=== PATIENT | female | born 1950 | race Caucasian/White ===

== ENCOUNTER 2018-03-17 05:24 | Inpatient (IN) | payer MEDICARE, MEDICAID ==
[~2018-03-17] VITALS: Ht 163.8 cm; Wt 95.5 kg
[~2018-03-17 05:24] MED LIST: ADV50100 INH; ALBU18HF2 INH; CLON0.2T PO; CLOP75TA15 PO; DILT360C18 PO; DOXY-257 PO; DULO-31 PO; FURO40TA4 PO; HYDR-4383 PO; HYDR50TA3 PO; IMDUR PO; LABE100T5 PO; LACT1CAP65 PO; LANTUS SUBCUT; LISI-600 PO; LORA1TAB PO; METO10TA3 PO; MONT10TA21 PO; NITR0.4T SL; POTA10TA15 PO; PRED10TA PO; ROFL500T7 PO; ROPI1TAB2 PO; SIMV10TA6 PO; TIOT4MIS5 INH; VITAMIN D3 PO; [UNRECOGNIZED DRUG - CODE] PO
--- NOTE | 2018-03-17 06:00 | NUR ---
ATTEMPTED TO DRAW LABS, UNSUCCESSFUL X 2.
[2018-03-17 06:33] LABS: ALANINE AMINOTRANSFERASE 18 U/L (12-78); ALBUMIN 3.1 G/DL (3.4-5.0); ALBUMIN/GLOBULIN RATIO 0.6 (1.1-1.5); ALKALINE PHOSPHATASE 117 IU/L (46-116); ANION GAP 11 (8-16); BASOPHILS # (AUTO) 0.1 X10'3 (0-0.2); BASOPHILS % (AUTO) 0.8 % (0-1); BILIRUBIN,TOTAL 0.4 MG/DL (0.1-1.0); BLOOD UREA NITROGEN 20 MG/DL (7-18); BUN/CREATININE RATIO 16.1 (6.6-38.0); CALCIUM 9.7 MG/DL (8.5-10.1); CHLORIDE 102 MMOL/L (99-107); CREATININE 1.24 MG/DL (0.40-0.90); EOSINOPHILS % (AUTO) 0.3 % (0-6); GLUCOSE 117 MG/DL (70-104); HEMATOCRIT 40.3 % (35.0-45.0); HEMOGLOBIN 12.6 g/dl (12.0-16.0); LYMPHOCYTES # (AUTO) 1.5 X10'3 (1.1-4.8); LYMPHOCYTES % (AUTO) 15.5 % (21-51); MEAN CORPUSCULAR HEMOGLOBIN 24.4 PG (27.0-31.0); MEAN CORPUSCULAR HGB CONC 31.3 % (33.0-36.5); MEAN CORPUSCULAR VOLUME 78.1 FL (78-98); MEAN PLATELET VOLUME 7.9 FL (7.4-10.4); MONOCYTES # (AUTO) 0.6 X10'3 (0-0.9); MONOCYTES % (AUTO) 5.7 % (2-12); NEUTROPHILS # (AUTO) 7.5 X10'3 (1.8-7.7); NEUTROPHILS % (AUTO) 77.7 % (42-75); PLATELET COUNT 331 X10'3 (140-440); RED BLOOD COUNT 5.16 X10'6 (4.20-5.60); RED CELL DISTRIBUTION WIDTH 17.1 % (11.5-14.5); SODIUM 137 MMOL/L (135-145); WHITE BLOOD COUNT 9.7 X10'3 (4.5-11.0); eGFR 43 ML/MIN
[2018-03-17 06:38] LABS: ASPARTATE AMINO TRANSFERASE 28 U/L (10-37); POTASSIUM 4.3 MMOL/L (3.5-5.1)
[2018-03-17] MEDS ORDERED: azithromycin/NS 500mg/250ml 250 ML IV STA (06:46)
[2018-03-17 06:48] LABS: INR 1.1 INR; PARTIAL THROMBOPLASTIN TIME 23 SECONDS (22-32); PROTHROMBIN TIME 10.9 SECONDS (9.0-12.0)
[2018-03-17] MEDS ORDERED: albuterol 2.5 MG/3 ML nebule NEB ONE (06:50)
[2018-03-17] MEDS ORDERED: methylPREDNISolone sod succ 125mg/2ml vial IV ONE (06:50)
[2018-03-17] MEDS ORDERED: ipratropium/albuterol 3ml nebule NEB ONE (06:50)
[2018-03-17 07:21] LABS: ABG BASE EXCESS 1.5 mmol/L (-2.0-3.0); ABG HCO3 24.3 mmol/L (22.0-26.0); ABG PCO2 (T) 32.6 mmHg (32.0-45.0); ALLEN'S TEST Positive; FCOHb 1.7 % (0.5-1.5); FLOW 2 L/min; FMetHb 0.1 % (0.3-1.12); FO2Hb 94.3 % (94-100); RESPIRATORY RATE (OBSERVED) 22 b/min; TOTAL HEMOGLOBIN 12.9 G/dl (12.0-16.0)
--- NOTE | 2018-03-17 07:49 | NUR ---
Called to room. Pt complaining of left arm pain at IV site. Small amount of edema and redness noted. IV discontinued.
[2018-03-17] MEDS ORDERED: furosemide 10 MG/1 ML 10ml inj IV ONE (08:05)
[2018-03-17] MEDS ORDERED: ondansetron/PF 4mg/2ml inj IV ONE (08:05)
[2018-03-17 08:35] LABS: MAGNESIUM 1.8 MG/DL (1.5-2.4)
[2018-03-17] MEDS: normal saline 1000ml 1,000 ML IV SCH (09:32)
[2018-03-17] MEDS ORDERED: magnesium 4gm in 100ml NS 100 ML IV PRN (09:35)
[2018-03-17] MEDS ORDERED: magnesium Cl slow-release 64mg tablet PO PRN (09:35)
[2018-03-17] MEDS ORDERED: dextrose 50%-water 50ml dispensing syringe IV PRN ×3 (09:35→10:10)
[2018-03-17] MEDS ORDERED: magnesium 2GM in 50ml NS 50 ML IV PRN (09:35)
[2018-03-17] MEDS ORDERED: acetaminophen 325mg tablet PO PRN ×2 (09:35)
[2018-03-17] MEDS ORDERED: potassium Cl 20 mEq SR tablet PO PRN ×2 (09:35)
[2018-03-17] MEDS ORDERED: ondansetron/PF 4mg/2ml inj IV PRN (09:35)
[2018-03-17] MEDS ORDERED: potassium Cl 40MEQ/NS 500ml 500 ML IV PRN ×2 (09:35)
[2018-03-17] MEDS: morphine 4 MG/ML inj SYRINge IV PRN ×2 (09:49→14:41)
[2018-03-17] MEDS ORDERED: MESSAGE TO PHARMACY PO ONE (10:10)
[2018-03-17] MEDS ORDERED: glucagon, human recombinant 1mg kit SUBCUT PRN (10:10)
[2018-03-17] MEDS ORDERED: insulin Lispro (HumaLOG) vial - multi-dose SQ SCH (10:10)
[2018-03-17] MEDS ORDERED: dextrose ORAL solution 15 GM/59 ML bottle PO PRN ×2 (10:10)
[2018-03-17] MEDS ORDERED: ACET-2765 PO (10:45)
[2018-03-17] MEDS ORDERED: ONDA4TAB6 PO (10:45)
[2018-03-17] MEDS ORDERED: ATOR40TA PO (10:45)
[2018-03-17] MEDS ORDERED: ASPI-1053 PO (10:45)
[2018-03-17] MEDS ORDERED: PANT-47 PO (10:45)
[2018-03-17] MEDS ORDERED: ROFL500T7 PO (10:45)
[2018-03-17] MEDS ORDERED: TIOT4MIS5 IH (10:45)
[2018-03-17] MEDS ORDERED: ALPR-624 PO (10:45)
[2018-03-17] MEDS ORDERED: AMIO200T54 PO (10:45)
[2018-03-17] MEDS ORDERED: INSU100V12 SQ (10:45)
[2018-03-17] MEDS ORDERED: ATR0.5NEB IH (10:45)
[2018-03-17] MEDS ORDERED: DOCU250C4 PO (10:45)
[2018-03-17] MEDS ORDERED: BISO5TAB PO (10:45)
[2018-03-17] MEDS ORDERED: LISI2.5T2 PO (10:45)
[2018-03-17] MEDS ORDERED: ISOS60TA4 PO (10:45)
[2018-03-17] MEDS ORDERED: ROBDML PO (10:45)
[2018-03-17] MEDS ORDERED: LACT1CAP65 PO (10:45)
[2018-03-17 12:08] LABS: HEMOGLOBIN A1C 6.8 % (4.5-6.2)
[2018-03-17] MEDS: albuterol 2.5 MG/3 ML nebule NEB SCH ×2 (12:31→20:00)
[2018-03-17] MEDS ORDERED: LORazepam 1 MG tablet PO ONE (13:25)
[2018-03-17] MEDS ORDERED: LORazepam 0.5 MG tablet PO ONE (14:00)
--- NOTE | 2018-03-17 15:15 | NUR ---
Patient arrived to the floor, VSS, patient alert, oriented, pleasant, skin assessment completed with ED RN, Ratna. No distress noted, pt on 3L O2, O2 sats 95%.
[2018-03-17 15:37] VITALS: BP 97/52
--- NOTE | 2018-03-17 16:36 | NUR ---
Paged Dr. Raymond regarding this pt's prolonged QTC of 0.517. Awaiting further orders.
[2018-03-17 18:00] VITALS: BP 115/49
--- NOTE | 2018-03-17 18:35 | NUR ---
Patient in room U 3024. I have received report from Silvina Mejia and had the opportunity to ask questions and assume patient care. Addendum: 03/17/18 at 1906 by Kalie Mata RN Amended: Links added.
--- NOTE | 2018-03-17 18:53 | NUR ---
Problems reprioritized. Patient report given, questions answered & plan of care reviewed with MAKI Jade.
[2018-03-17] MEDS: HYDROcodone/acetaminophen 5mg/325mg tablet PO PRN (20:25)
[2018-03-17] MEDS: docusate sod 100mg capsule PO SCH (20:25)
[2018-03-17] MEDS: heparin, porcine 5000 units/ml vial SQ SCH (20:26)
--- NOTE | 2018-03-17 20:30 | NUR ---
pt awoke took her hs meds and talked with her daughter briefly on the phone. daughter also talked with Rn confirming Mom sleepy and medicated for pain.
[2018-03-17] MEDS: insulin glargine (Lantus) pen - multi-dose SQ SCH (20:36)
[2018-03-17] MEDS ORDERED: temazepam 15mg capsule PO PRN (21:00)
[2018-03-17 22:00] VITALS: BP 109/74
--- NOTE | 2018-03-17 22:30 | NUR ---
pt resting no s&s of distress at this time. appears comfortable.
--- NOTE | 2018-03-18 00:19 | NUR ---
resting no s&s of distress lights turned off in the room
--- NOTE | 2018-03-18 01:05 | NUR ---
daughter called to check on pt she is [place] and concerned. stated pt has been depressed since just before she moved and her anxiety and lack of sleep and depression has gotten worse. she stated she's glad her Mom is resting tonight.
--- NOTE | 2018-03-18 01:38 | NUR ---
pt awoke needed to use the rest room. voided 450cc urine and assisted in ambulating to and from the bathroom. pt c/o knee pain especially in the right knee. medicated with norco for this.
[2018-03-18] MEDS: HYDROcodone/acetaminophen 5mg/325mg tablet PO PRN ×4 (01:41→20:28)
[2018-03-18 02:00] VITALS: BP 129/77
[2018-03-18] MEDS: albuterol 2.5 MG/3 ML nebule NEB SCH ×4 (02:00→20:20)
[2018-03-18] MEDS: morphine 4 MG/ML inj SYRINge IV PRN ×3 (03:43→16:16)
--- NOTE | 2018-03-18 03:45 | NUR ---
pt stated she ate 3 bags one day and the next day 5 bags of pork rinds as a snack. teaching done about the salt in that, shrimp and soda's not being good for her for fluid retention. stop smoking explained why she needed to.
[2018-03-18] MEDS: normal saline 1000ml 1,000 ML IV SCH ×2 (03:51→20:26)
--- NOTE | 2018-03-18 05:45 | NUR ---
awoke a/o no complaints or s&s of distress at this time.
[2018-03-18 06:00] VITALS: BP 143/60
--- NOTE | 2018-03-18 06:29 | NUR ---
Problems reprioritized. Patient report given, questions answered & plan of care reviewed with Ale Mejia. Addendum: 03/18/18 at 0632 by Kalie Mata RN Amended: Links added.
[2018-03-18 06:51] LABS: BASOPHILS % (AUTO) 0.2 % (0-1); EOSINOPHILS % (AUTO) 0.1 % (0-6); HEMATOCRIT 32.7 % (35.0-45.0); HEMOGLOBIN 10.4 g/dl (12.0-16.0); LYMPHOCYTES # (AUTO) 2.4 X10'3 (1.1-4.8); MEAN CORPUSCULAR HEMOGLOBIN 24.8 PG (27.0-31.0); MEAN CORPUSCULAR HGB CONC 31.7 % (33.0-36.5); MEAN CORPUSCULAR VOLUME 78.2 FL (78-98); MEAN PLATELET VOLUME 8.1 FL (7.4-10.4); MONOCYTES # (AUTO) 1.1 X10'3 (0-0.9); MONOCYTES % (AUTO) 7.5 % (2-12); NEUTROPHILS # (AUTO) 10.8 X10'3 (1.8-7.7); NEUTROPHILS % (AUTO) 75.2 % (42-75); PLATELET COUNT 278 X10'3 (140-440); RED BLOOD COUNT 4.18 X10'6 (4.20-5.60); RED CELL DISTRIBUTION WIDTH 17.7 % (11.5-14.5); WHITE BLOOD COUNT 14.3 X10'3 (4.5-11.0)
[2018-03-18 07:00] LABS: ALANINE AMINOTRANSFERASE 17 U/L (12-78); ALBUMIN 2.8 G/DL (3.4-5.0); ALBUMIN/GLOBULIN RATIO 0.7 (1.1-1.5); ALKALINE PHOSPHATASE 94 IU/L (46-116); ANION GAP 11 (8-16); ASPARTATE AMINO TRANSFERASE 16 U/L (10-37); BILIRUBIN,TOTAL 0.4 MG/DL (0.1-1.0); BLOOD UREA NITROGEN 34 MG/DL (7-18); BUN/CREATININE RATIO 24.6 (6.6-38.0); CALCIUM 8.9 MG/DL (8.5-10.1); CHLORIDE 104 MMOL/L (99-107); CREATININE 1.38 MG/DL (0.40-0.90); GLUCOSE 88 MG/DL (70-104); POTASSIUM 3.8 MMOL/L (3.5-5.1); SODIUM 141 MMOL/L (135-145); TOTAL CARBON DIOXIDE 26.2 MMOL/L (24-32); TOTAL PROTEIN 6.6 G/DL (6.4-8.2); eGFR 38 ML/MIN
[2018-03-18] MEDS: K and/or MAG REPLACEMENT MC SCH (07:40)
[2018-03-18] MEDS: CefTRIAXone 2gm/D5W 50ml 50 ML IV SCH (07:50)
[2018-03-18] MEDS: pantoprazole 40mg Tablet.DR PO SCH (07:50)
[2018-03-18] MEDS: docusate sod 100mg capsule PO SCH ×2 (07:50→20:28)
[2018-03-18] MEDS: atenolol 50mg tablet PO SCH (07:51)
[2018-03-18] MEDS: clopidogrel 75mg tablet PO SCH (07:51)
[2018-03-18] MEDS: aspirin 81mg tab.chew PO SCH (07:51)
[2018-03-18] MEDS: lisinopril 5mg tablet PO SCH (07:51)
[2018-03-18] MEDS: duloxetine 30mg CAPSULE.DR PO SCH (07:51)
[2018-03-18] MEDS: atorvastatin 20mg tablet PO SCH (07:51)
[2018-03-18] MEDS: nicotine 14mg patch - 24hr TD SCH (07:52)
[2018-03-18] MEDS: heparin, porcine 5000 units/ml vial SQ SCH ×2 (07:52→20:28)
[2018-03-18] MEDS ORDERED: lisinopril 20mg tablet PO SCH (08:00)
[2018-03-18] MEDS ORDERED: HYDROchlorothiazide 25mg tablet PO SCH (08:00)
[2018-03-18] MEDS ORDERED: clopidogrel 75mg tablet PO SCH (08:00)
[2018-03-18] MEDS ORDERED: methylPREDNISolone sod succ 125mg/2ml vial IV SCH (08:00)
[2018-03-18 11:00] VITALS: BP 121/51
[2018-03-18] MEDS: LORazepam 2 mg/ml vial IV PRN ×2 (11:04→17:33)
--- NOTE | 2018-03-18 11:10 | NUR ---
Patient anxious, fidgety, asking for something to help calm her down. Primary RN, Ale ok with patient getting anxiety meds. Ativan given as ordered.
[2018-03-18 18:00] VITALS: BP 133/52
--- NOTE | 2018-03-18 18:30 | NUR ---
Patient in room U 3024. I have received report from DAVID GAMBINO and had the opportunity to ask questions and assume patient care. Addendum: 03/18/18 at 1910 by Kalie Mata RN Amended: Links added.
--- NOTE | 2018-03-18 18:32 | NUR ---
Problems reprioritized. Patient report given, questions answered & plan of care reviewed with ANGELA GAMBINO.
[2018-03-18 20:15] LABS: ABG BASE EXCESS 0.1 mmol/L (-2.0-3.0); ABG HCO3 25.4 mmol/L (22.0-26.0); ABG PH (T) 7.387 (7.350-7.450); ABG PO2 (T) 86.4 mmHg (83-108); ALLEN'S TEST Positive; FCOHb 0.5 % (0.5-1.5); FLOW 3 L/min; FMetHb 0.1 % (0.3-1.12); FO2Hb 95.4 % (94-100); PATIENT TEMPERATURE 36.6; TOTAL HEMOGLOBIN 10.7 G/dl (12.0-16.0)
--- NOTE | 2018-03-18 20:30 | NUR ---
pt took hs medications and medicated for pain with norco with gd results.
[2018-03-18] MEDS: insulin glargine (Lantus) pen - multi-dose SQ SCH (21:00)
[2018-03-18 22:00] VITALS: BP 134/65
--- NOTE | 2018-03-18 22:58 | NUR ---
pt resting eyes closed without s&s of distress at this time.
--- NOTE | 2018-03-19 00:49 | NUR ---
resting eyes closed without changes.
[2018-03-19] MEDS: morphine 4 MG/ML inj SYRINge IV PRN (01:58)
[2018-03-19 02:00] VITALS: BP 139/64
--- NOTE | 2018-03-19 02:00 | NUR ---
awoke c/p pain with knee medicated with morphine for this.
[2018-03-19] MEDS: albuterol 2.5 MG/3 ML nebule NEB SCH ×2 (02:53→10:29)
--- NOTE | 2018-03-19 03:00 | NUR ---
up with assistance to void at this time. tolerated well.
--- NOTE | 2018-03-19 04:00 | NUR ---
resting eyes closed without changes.
--- NOTE | 2018-03-19 04:30 | NUR ---
daughter called to check on her. no changes.
[2018-03-19] MEDS: normal saline 1000ml 1,000 ML IV SCH (05:05)
[2018-03-19] MEDS: HYDROcodone/acetaminophen 5mg/325mg tablet PO PRN ×2 (05:10→09:13)
--- NOTE | 2018-03-19 05:12 | NUR ---
pt awoke medicated for pain with po norco.
--- NOTE | 2018-03-19 06:50 | NUR ---
Problems reprioritized. Patient report given, questions answered & plan of care reviewed with Yamile Mejia. Addendum: 03/19/18 at 0650 by Kalie Mata RN Amended: Links added.
--- NOTE | 2018-03-19 06:54 | NUR ---
Patient in room PC[facility] 3024. I have received report from Kalie GAMBINO and had the opportunity to ask questions and assume patient care.
[2018-03-19 07:00] VITALS: BP 140/55
[2018-03-19 08:00] VITALS: BP_SYST 140
[2018-03-19] MEDS ORDERED: methylPREDNISolone sod succ/PF 40mg inj. IV SCH (08:00)
[2018-03-19] MEDS: atenolol 50mg tablet PO SCH (08:00)
[2018-03-19] MEDS: K and/or MAG REPLACEMENT MC SCH (08:00)
[2018-03-19] MEDS: pantoprazole 40mg Tablet.DR PO SCH (08:00)
[2018-03-19 08:20] LABS: BASOPHILS % (AUTO) 0.2 % (0-1); EOSINOPHILS # (AUTO) 0.1 X10'3 (0-0.9); EOSINOPHILS % (AUTO) 0.5 % (0-6); HEMATOCRIT 34.5 % (35.0-45.0); HEMOGLOBIN 11.1 g/dl (12.0-16.0); MEAN CORPUSCULAR HEMOGLOBIN 25.3 PG (27.0-31.0); MEAN CORPUSCULAR HGB CONC 32.3 % (33.0-36.5); MEAN CORPUSCULAR VOLUME 78.4 FL (78-98); MEAN PLATELET VOLUME 8.5 FL (7.4-10.4); MONOCYTES # (AUTO) 0.8 X10'3 (0-0.9); MONOCYTES % (AUTO) 7.5 % (2-12); NEUTROPHILS # (AUTO) 7.2 X10'3 (1.8-7.7); NEUTROPHILS % (AUTO) 64.8 % (42-75); PLATELET COUNT 265 X10'3 (140-440); RED CELL DISTRIBUTION WIDTH 17.7 % (11.5-14.5); WHITE BLOOD COUNT 11.1 X10'3 (4.5-11.0)
[2018-03-19 08:41] LABS: ALANINE AMINOTRANSFERASE 16 U/L (12-78); ALBUMIN 2.8 G/DL (3.4-5.0); ALBUMIN/GLOBULIN RATIO 0.7 (1.1-1.5); ALKALINE PHOSPHATASE 97 IU/L (46-116); ANION GAP 9 (8-16); ASPARTATE AMINO TRANSFERASE 17 U/L (10-37); BILIRUBIN,TOTAL 0.4 MG/DL (0.1-1.0); BLOOD UREA NITROGEN 32 MG/DL (7-18); BUN/CREATININE RATIO 26.2 (6.6-38.0); CALCIUM 8.8 MG/DL (8.5-10.1); CHLORIDE 105 MMOL/L (99-107); CREATININE 1.22 MG/DL (0.40-0.90); GLUCOSE 71 MG/DL (70-104); MAGNESIUM 1.9 MG/DL (1.5-2.4); POTASSIUM 3.5 MMOL/L (3.5-5.1); SODIUM 141 MMOL/L (135-145); TOTAL CARBON DIOXIDE 26.6 MMOL/L (24-32); TOTAL PROTEIN 6.6 G/DL (6.4-8.2); eGFR 44 ML/MIN
[2018-03-19] MEDS: CefTRIAXone 2gm/D5W 50ml 50 ML IV SCH (09:10)
[2018-03-19] MEDS: nicotine 14mg patch - 24hr TD SCH (09:11)
[2018-03-19] MEDS: docusate sod 100mg capsule PO SCH (09:11)
[2018-03-19] MEDS: atorvastatin 20mg tablet PO SCH (09:11)
[2018-03-19] MEDS: aspirin 81mg tab.chew PO SCH (09:12)
[2018-03-19] MEDS: lisinopril 5mg tablet PO SCH (09:12)
[2018-03-19] MEDS: clopidogrel 75mg tablet PO SCH (09:12)
[2018-03-19] MEDS: duloxetine 30mg CAPSULE.DR PO SCH (09:12)
[2018-03-19] MEDS ORDERED: ADV50250 IH (09:15)
[2018-03-19] MEDS ORDERED: NICO-631 TD (09:15)
[2018-03-19] MEDS ORDERED: ALBU2.5V7 NEB (09:15)
[2018-03-19] MEDS ORDERED: PRED10TA23 PO (09:19)
[2018-03-19] MEDS ORDERED: LEVO500T2 PO (09:19)
[2018-03-19 09:20] LABS: ANISOCYTOSIS 2+; HYPOCHROMASIA 1+; MICROCYTOSIS 1+; PLATELET ESTIMATE NORMAL; POLYCHROMASIA 1+; TARGET CELLS FEW
[2018-03-19] MEDS: LORazepam 2 mg/ml vial IV PRN (11:02)
[2018-03-19] MEDS: heparin, porcine 5000 units/ml vial SQ SCH (11:03)
--- NOTE | 2018-03-19 11:54 | NUR ---
Pt escorted to elevator by in wheelchair for safe discharge. All discharge paperwork completed, reviewed, and signed. IV dc'd, tele box returned, and medical id bracelets removed. Pt happy with care and discharge.
== END 2018-03-19 13:48 | disposition home or self-care (01) | DRG 189 ==
LOC: ER 05:25 → ED HOLD 09:32 → PCU 3S 15:33
PROVIDERS: ADMIT Internal Medicine; ATTEND Internal Medicine
DX: J96.01 Acute respiratory failure with hypoxia (principal); J44.1 Chronic obstructive pulmonary disease with (acute) exacerbation; I13.0 Hypertensive heart and chronic kidney disease with heart failure and stage 1 through stage 4 chronic kidney disease, or unspecified chronic kidney disease; E11.22 Type 2 diabetes mellitus with diabetic chronic kidney disease; E78.00 Pure hypercholesterolemia, unspecified; E78.5 Hyperlipidemia, unspecified; F41.9 Anxiety disorder, unspecified; G89.4 Chronic pain syndrome; I25.10 Atherosclerotic heart disease of native coronary artery without angina pectoris; N18.3 Chronic kidney disease, stage 3 (moderate); I50.9 Heart failure, unspecified; F17.210 Nicotine dependence, cigarettes, uncomplicated; I25.2 Old myocardial infarction; Z76.5 Malingerer [conscious simulation]; Z90.49 Acquired absence of other specified parts of digestive tract; Z95.1 Presence of aortocoronary bypass graft; Z90.710 Acquired absence of both cervix and uterus; Z99.81 Dependence on supplemental oxygen; Z88.1 Allergy status to other antibiotic agents; Z88.8 Allergy status to other drugs, medicaments and biological substances; Z91.041 Radiographic dye allergy status; Z79.82 Long term (current) use of aspirin; Z79.51 Long term (current) use of inhaled steroids; Z79.4 Long term (current) use of insulin; Z86.73 Personal history of transient ischemic attack (TIA), and cerebral infarction without residual deficits; Z80.9 Family history of malignant neoplasm, unspecified; Z82.49 Family history of ischemic heart disease and other diseases of the circulatory system
CPT/HCPCS: 36415; 36600; 71045; 80053; 82803; 82948; 83036; 83605; 83735; 83880; 84484; 85018; 85025; 85610; 85730; 87040; 93005; 94640; 94760; 96365; 96375; 97116; 97161; 97530; 99285; G0378; J0456; J0696; J1644; J1815; J1940; J2060; J2270; J2405; J2920; J2930; J7030

== ENCOUNTER 2018-05-02 18:46 | Inpatient (IN) | payer MEDICARE, MEDICAID | END 2018-05-08 12:30 | LOC: ER 18:46 → PCU 3S 05-03 00:47 → ED HOLD 22:43 → ORTHO 4S 05-03 16:15 | DX: M80.88XA Other osteoporosis with current pathological fracture, vertebra(e), initial encounter for fracture (principal); E43 Unspecified severe protein-calorie malnutrition; S32.029A Unspecified fracture of second lumbar vertebra, initial encounter for closed fracture; I50.9 Heart failure, unspecified; I11.0 Hypertensive heart disease with heart failure; J44.9 Chronic obstructive pulmonary disease, unspecified ==